=== PATIENT | male | born 1970 | race Caucasian/White ===

== ENCOUNTER 2021-09-08 18:52 | Emergency (ER) | payer OTHER ==
[~2021-09-08] VITALS: Ht 172.7 cm; Wt 140.6 kg
--- NOTE | 2021-09-08 19:28 | NUR ---
ER Dr. CAMERON IN TENT examining patient.
[2021-09-08 19:30] VITALS: BP_SYST 170
[2021-09-08] MEDS ORDERED: KETOROLAC TROMETHAMINE 60 MG/2 ML VIAL IM ONE (19:30)
--- NOTE | 2021-09-08 20:12 | NUR ---
PATIENT BROUGHT IN COMPLAINING OF NASAL CONGESTION, MILD HEADACHE AND MILD BODY ACHES X 2 DAYS. PATIENT ALSO REPORTS HAVE A BAD HEADACHE. PAIN 06/04. VSS
[2021-09-08] MEDS ORDERED: ZINC50TA69 PO (21:03)
[2021-09-08] MEDS ORDERED: DEC4 PO (21:03)
[2021-09-08] MEDS ORDERED: AMLO5TAB4 PO (21:03)
[2021-09-08] MEDS ORDERED: QUER1POW MC (21:03)
[2021-09-08] MEDS ORDERED: LISI1TAB57 PO (21:03)
[2021-09-08 21:09] VITALS: BP_SYST 162
--- NOTE | 2021-09-08 21:09 | NUR ---
Patient given written and verbal discharge instructions and verbalizes understanding. ER MD discussed with patient the results and treatment provided. Patient in stable condition. ID arm band removed. Rx of NORVASC, DECADRON, LISINOPRIL/HCTZ, QUERCETIN DIHYDRATE, ZINC given. Patient educated on pain management and to follow up with PMD. Pain Scale 0/10 Opportunity for questions provided and answered. Medication side effect fact sheet provided.
== END 2021-09-08 21:09 | disposition home or self-care (01) ==
LOC: SED 18:52
DX: U07.1 COVID-19 (principal); I10 Essential (primary) hypertension; Z79.899 Other long term (current) drug therapy
CPT/HCPCS: 99283; 87426; 96372; J1885; 36415